=== PATIENT | male | born 1985 | race Two or more races ===

== ENCOUNTER 2024-05-08 20:29 | Emergency (ER) | payer SELFPAY ==
[~2024-05-08] VITALS: Ht 177.8 cm; Wt 100.0 kg
[2024-05-08 20:45] VITALS: BP 96/62; PULSE 72; RESP 16; TEMP 98.5; O2SAT 98
== END 2024-05-09 01:33 | disposition home or self-care (01) ==
LOC: ER 20:29
DX: F10.129 Alcohol abuse with intoxication, unspecified (principal); Y90.9 Presence of alcohol in blood, level not specified
CPT/HCPCS: 99283